=== PATIENT | female | born 2000 | race Caucasian/White ===

== ENCOUNTER 2020-08-23 13:43 | Outpatient (REF) | payer OTHER, SELFPAY ==
[2020-08-23 16:53] LABS: Appearance Urine CLEAR; Color Urine STRAW; Glucose Urine UA NEG (NEG); Leukocyte Esterase Urine NEG (NEG); Nitrite Urine NEG (NEG); Specific Gravity - Urine <= 1.005 (1.005-1.025); Urine Blood NEG (NEG); Urine Ketones NEG (NEG); Urine Protein NEG (NEG-TRACE)
== END 2020-08-23 13:44 | disposition home or self-care (01) ==
LOC: HO.HMGCLDS 13:43
PROVIDERS: PCP Nurse Practitioner Family; Visit Provider Nurse Practitioner Family
DX: R30.0 Dysuria (principal)
CPT/HCPCS: 81003; 87086

== ENCOUNTER 2021-05-29 14:54 | Outpatient (REF) | payer OTHER, SELFPAY ==
[2021-05-29 17:56] LABS: Appearance Urine CLEAR; Color Urine YELLOW; Glucose Urine UA NEG (NEG); Leukocyte Esterase Urine NEG (NEG); Nitrite Urine NEG (NEG); PH 7.5 (5.0-8.0); Urine Blood NEG (NEG); Urine Ketones NEG (NEG); Urine Protein NEG (NEG-TRACE)
[2021-05-29 18:12] LABS: RBC Urine 0 /HPF (0); Squamous Epithelial Cell Urine 1+ /LPF; WBC Urine 0 /HPF (0-4)
== END 2021-05-29 14:55 | disposition home or self-care (01) ==
LOC: HO.LAB 14:54
PROVIDERS: PCP Nurse Practitioner Family; Visit Provider Nurse Practitioner Family
DX: R35.0 Frequency of micturition (principal)
CPT/HCPCS: 81001

== ENCOUNTER 2025-03-17 14:18 | Outpatient (RCR) | payer BC, SELFPAY ==
--- NOTE | 2025-02-21 13:45 | MHC.OT.EP ---
[address] [phone] Occupational Therapy Plan of Care Patient Name: Mayuri Ravi Date of Evaluation: 02/10/25 Diagnosis: R radial wrist pain Pain Location: Pain Score: Pain Scale Used: Aggravating Factors: Alleviating Factors: Assessment: Pt is a R hand dominant female who reports pain in her R radial wrist for 10+years. The sx's of pain are exacerbated by weight bearing into her wrist. She works as a nurse at [employer] she saw Fannie Garvey who referred her to skilled OT Therapy to address her pain, decreased wrist extension (due to pain), and decreased strength to increase the functional use of her R hand/ wrist for performance in ADLs and IADLs Frequency and Duration: The patient will be seen 2 xs a week for 4 weeks Short Term Goals: Pt will adhere to her HEP Pt will report 3/10 pain w/ weight bearing into her wrist Shelter Goals: Pt will report 1/10 pain w/ activity Pt will report being able to perform yoga w/out pain (45minutes worth) Pt will RPLOF Treatment Plan: Therapeutic Exercise Therapeutic Activity Home Exercise Program Splinting Neuro Re-ed Patient Education Desensitization/Sensory Re-ed Edema Control ADL Training Ultrasound NMES Iontophoresis Fluidotherapy MHP Cold Packs Joint Mobilization Soft Tissue Mobilization Kinesiotaping Electronically Signed By: Faraz Inman OTR/L Please Sign and return to therapist. Thank you once again for your referral.
== END 2025-03-17 15:05 | disposition home or self-care (01) ==
LOC: HO.OT 14:18
PROVIDERS: PCP Nurse Practitioner Family; Visit Provider Physician Assistant
DX: M25.531 Pain in right wrist (principal)
CPT/HCPCS: 97033; 97140; 97165; 97535